=== PATIENT | male | born 1945 ===

== ENCOUNTER 2022-02-19 06:24 | Day surgery (SDC) | payer OTHER ==
[~2022-02-19] VITALS: Ht 170.2 cm; Wt 79.4 kg
[~2022-02-19 06:24] MED LIST: DILTIAZEM ER300 M2 PO; ELIQUIS5 MG PO; GABAPENTIN300 M2 PO; HYDRODIURIL12.5 MG PO; LIPITOR20 MG PO; METFORMIN HCL500 M3 PO; RAMIPRIL5 MG PO; TOPROL XL200 MG PO; TOPROL XL50 M1 PO
== END 2022-02-19 13:45 | disposition home or self-care (01) ==
LOC: CIR.AMB 06:24
PROVIDERS: ATTEND Orthopaedic Surgery Hand Surgery
DX: G56.01 Carpal tunnel syndrome, right upper limb (principal); Z87.891 Personal history of nicotine dependence; E11.9 Type 2 diabetes mellitus without complications; Z79.84 Long term (current) use of oral hypoglycemic drugs; Z20.822 Contact with and (suspected) exposure to COVID-19

== ENCOUNTER 2024-11-16 05:45 | Day surgery (SDC) | payer OTHER ==
[2024-11-16] MEDS ORDERED: CEFAZOLIN SODIUM 1,000 MG VIAL ONE (08:12)
[2024-11-16] MEDS ORDERED: BUPIVACAINE HCL/Mpf 0.5% 10ML VIAL ONE (08:32)
== END 2024-11-16 11:20 | disposition home or self-care (01) ==
LOC: CIR.AMB 05:45
PROVIDERS: ATTEND Orthopaedic Surgery Hand Surgery
DX: G56.02 Carpal tunnel syndrome, left upper limb (principal); I10 Essential (primary) hypertension; E11.9 Type 2 diabetes mellitus without complications